=== PATIENT | female | born 1990 | race Caucasian/White ===

== ENCOUNTER → 2019-11-17 | Outpatient (CLI) | payer OTHER ==
[~2019-11-17] MED LIST: OXYC-325 PO; PNV1TABL78 PO
== END | disposition home or self-care (01) ==
LOC: LAB 14:16
PROVIDERS: ATTEND Surgery
DX: Z11.59 Encounter for screening for other viral diseases (principal)
CPT/HCPCS: U0003-CS

== ENCOUNTER 2019-11-21 05:56 | Day surgery (SDC) | payer OTHER ==
[~2019-11-21] VITALS: Ht 162.6 cm; Wt 82.5 kg
[~2019-11-21 05:56] MED LIST changes: -OXYC-325 PO
[2019-11-21] MEDS ORDERED: SCOPOLAMINE 1.5MG PATCH. TD ONE (06:45)
[2019-11-21] MEDS ORDERED: LIDOCAINE 1% PF 2 ML VIAL. ID PRN (07:00)
[2019-11-21] MEDS ORDERED: fentaNYL PF VIAL 100 MCG/2 ML VIAL IV PRN ×2 (07:00)
[2019-11-21] MEDS ORDERED: PROCHLORPERAZINE 10 MG/2 ML VIAL. IV PRN (07:00)
[2019-11-21] MEDS ORDERED: HYDROmorphone 2 MG/ML VIAL IV PRN (07:00)
[2019-11-21] MEDS ORDERED: IV RINGERS,LACTATED 1000ML 1,000 ML IV SCH (07:00)
[2019-11-21] MEDS ORDERED: MORPHINE SULFATE 2 MG/ML VIAL. IV PRN (07:00)
[2019-11-21] MEDS ORDERED: ceFAZolin 2GM PREMIX 2 GM/50 ML BAG IV ONE (07:00)
[2019-11-21] MEDS ORDERED: ONDANSETRON PF 4 MG/2 ML VIAL. IV PRN (07:00)
[2019-11-21] MEDS ORDERED: ONDANSETRON PF 4 MG/2 ML VIAL. ONE (07:08)
[2019-11-21] MEDS ORDERED: LIDOCAINE 2% PF 5 ML VIAL. ONE (07:08)
[2019-11-21] MEDS ORDERED: PROPOFOL 10 MG/ML (20ML) VIAL. IV ONE (07:08)
[2019-11-21] MEDS ORDERED: DEXAMETHASONE SOD PHOS 4 MG/ML VIAL ONE (07:08)
[2019-11-21] MEDS ORDERED: SUCCINYLCHOLINE 200 MG/10 ML VIAL. ONE (07:09)
[2019-11-21] MEDS ORDERED: ROCURONIUM 100 MG/10 ML VIAL. ONE (07:09)
[2019-11-21] MEDS ORDERED: fentaNYL PF VIAL 100 MCG/2 ML VIAL ONE ×2 (07:09→09:25)
[2019-11-21] MEDS ORDERED: MIDAZOLAM HCL/PF 2 MG/2 ML VIAL. ONE (07:09)
[2019-11-21] MEDS ORDERED: IOHEXOL 300 MG/ML 50 ML VIAL. ONE (07:13)
[2019-11-21] MEDS ORDERED: BUPIVACAINE MPF 0.5% 30 ML VIAL. ONE (07:14)
[2019-11-21] MEDS ORDERED: SURGICEL HEMOSTAT 4X8 EACH. ONE (07:14)
[2019-11-21] MEDS ORDERED: FAMOTIDINE 20 MG/2 ML VIAL ONE (07:35)
[2019-11-21] MEDS ORDERED: KETOROLAC 30 MG/ML VIAL. ONE (08:02)
[2019-11-21] MEDS ORDERED: GLYCOPYRROLATE 1 MG/5 ML VIAL. ONE (08:03)
[2019-11-21] MEDS ORDERED: NEOSTIGMINE METHYLSULFATE 5 MG/5 ML SYRINGE. ONE (08:03)
[2019-11-21] MEDS ORDERED: SEVOFLURANE 61 TO 120 MINUTES. IH ONE (08:19)
--- NOTE | 2019-11-21 08:39 | PDOC4 ---
Operative Note Operative Note Operative Note: Preoperative Diagnosis: Symptomatic cholelithiasis Postoperative Diagnosis: Same Procedure: Laparoscopic cholecystectomy with intraoperative cholangiogram Surgeons: Tyrone Roll Winder: Brianne RACHEL Anesthesia: Gen. Estimated Blood Loss: 10 mL Specimen: Gallbladder to pathology Drains: None Complications: None Indications: The patient is a 29-year-old female who is been experiencing recurrent upper abdominal pain consistent with biliary colic. Surgical treatment was offered by means of a laparoscopic cholecystectomy. The risks of surgery were discussed which include bleeding, infection, bile duct injury, bile leak, pain, the potential for additional surgeries or procedures. The patient understands and would like to proceed. Description: The patient was taken to the operating room and laid supine on the operating table. General anesthesia was performed. The abdomen was prepped with ChloraPrep and draped in a standard surgical fashion. A small infraumbilical incision was made with a scalpel. The Veress needle was then inserted and a pneumoperitoneum was then created. A 5 mm trocar was then inserted and the laparoscope was introduced. In the upper midabdomen a 5 mm trocar was inserted and in the right upper quadrant two 2.3 mm mini lap graspers were inserted. The gallbladder was retracted cephalad. The cystic duct was dissected free from surrounding tissues. One clip was placed on the duct near the gallbladder junction. An opening was made in the duct and a cholangiocatheter placed within and secured with a clip. Using contrast dye and fluoroscopy an intraoperative cholangiogram was performed that appeared unremarkable. The clip and catheter were then withdrawn. Three clips were placed on the cystic duct and it was divided. The cystic artery was then identified, dissected free, doubly clipped and divided as well. The gallbladder was then mobilized away from the liver with cautery. The umbilical 5 millimeter trocar was exchanged for an 11 millimeter trocar. The gallbladder was then placed in an endoscopic bag and extracted at the umbilical trocar site. The fascia there was closed with an 0 Vicryl suture. All blood and irrigation fluid was suctioned and hemostasis was good. The remaining ports were removed and the pneumoperitoneum was relieved. The skin incisions were injected with half percent Marcaine with epinephrine, and all were closed using 4-0 Monocryl suture. Steri-Strips and dressings were then applied. The patient tolerated the procedure well and was sent to the recovery room in stable condition. At the end of the case all counts were correct. HANG OWUSU MD Nov 21, 2019 08:39
--- NOTE | 2019-11-21 08:40 | DISCH ---
DISCHARGE INSTRUCTIONS Condition on Discharge Condition on Discharge: Stable Activity After Discharge Activity Instructions for Disc: Other, see below (no lifting over 20 lbs X 2 weeks) Driving Instructions after Dis: Other, see below (no driving while taking pain meds) Diet after Discharge Diet after Discharge: Regular Wound Incision Care Wound/Incision Care: Other, see below (may remove bandaids tomorrow and shower) Follow-Up Follow up with: Dr Owusu in 2 weeks in office, call for appt [phone] HANG OWUSU MD Nov 21, 2019 08:40
[2019-11-21] MEDS ORDERED: OXYC-325 PO (09:09)
[2019-11-21] MEDS ORDERED: PROCHLORPERAZINE 10 MG/2 ML VIAL. ONE (09:25)
--- NOTE | 2019-11-21 09:56 | RAD ---
CHOLANGIOGRAM INTRAOPERATIVE Clinical Indication: Reason: CHOLANGIOGRAMS IN OR WITH C-ARM, Comparison: Limited abdominal ultrasound, October 24, 2019. Findings: Total fluoroscopy time 0.3 minutes. 4 fluoroscopic spot images. Injection of cystic duct remnant, filling of the extrahepatic duct. No filling defect is seen. Contrast spills into the duodenum. Contrast is seen in the pancreatic duct. IMPRESSION: No evidence of choledocholithiasis. Electronically signed by: Ian Medeiros MD (11/21/2019 9:53 AM) [id number]
[2019-11-21] MEDS ORDERED: oxyCODONE/APAP 5/325 1 TAB TABLET PO ONE (10:15)
[2019-11-21 10:31] VITALS: BP 97/64
--- NOTE | 2019-11-22 18:06 | PATHOLOGY ---
[facility] Accession Number: [id number] . 01 Material submitted: . gallbladder - GALLBLADDER SAC WITH CONTENTS . 01 Clinical history: . Symptomatic cholelithiasis; cholelithiasis . 02 Diagnosis: Gallbladder, laparoscopic cholecystectomy: - Cholelithiasis. - Chronic cholecystitis with focally increased eosinophils. (JPM:service parts coordinator; 11/22/2019) R 11/22/2019 1554 Local . 02 Comment: There is no evidence of malignancy. (JPM:service parts coordinator; 11/22/2019) . 02 Electronically signed: . Rikki Campuzano MD, Pathologist NPI- [id number] . 01 Gross description: . The specimen is received in formalin, labeled "Gina Champagne, gallbladder sac with contents". Received is an intact gallbladder measuring 7.5 x 3.4 x 2.8 cm in greatest dimensions displaying a pink-white serosal surface. Opening the specimen reveals a velvety, bile-stained mucosa with mild, diffuse cholesterolosis, and with a gallbladder wall thickness of 0.1 cm. Calculi are present displaying a bright yellow and multinodular appearance, and no masses or lesions are noted grossly. Employment Advisor sections, to include the proximal margin, are submitted in cassette A1. (CAA; 11/21/2019) QA/QAC 11/21/2019 1701 Local . 02 Pathologist provided ICD-10: K80.10 . 02 CPT . 043456 Specimen Comment: A courtesy copy of this report has been sent to [phone], [phone] Specimen Comment: [id number] Specimen Comment: Report sent to / DR ALEGRIA Performed at: [address], [place], [place] [id number] MD Jr Cadena MD Phone: [phone] Performed at: [address] [id number] MD Rikki Campuzano MD Phone: [phone]
== END 2019-11-21 10:56 | disposition home or self-care (01) ==
LOC: SURG 05:56
PROVIDERS: ATTEND Surgery
DX: K81.1 Chronic cholecystitis (principal); D72.1 Eosinophilia; K91.5 Postcholecystectomy syndrome; Z79.899 Other long term (current) drug therapy; Z98.890 Other specified postprocedural states; Z83.3 Family history of diabetes mellitus; Z82.49 Family history of ischemic heart disease and other diseases of the circulatory system
CPT/HCPCS: 47563; 74300; 81025; A7015; J0330; J0690; J0780; J1100; J1885; J2250; J2405; J2704; J2710; J3010; J3490; J7030; Q9967; 88304